=== PATIENT | male | born 1975 | race Caucasian/White ===

== ENCOUNTER 2019-09-06 21:29 | Emergency (ER) | payer OTHER ==
[~2019-09-06] VITALS: Ht 172.7 cm; Wt 84.1 kg
[2019-09-06 21:47] VITALS: BP 139/94; Ht 172.7 cm; Wt 84.1 kg
[2019-09-06] MEDS ORDERED: PRAVACHOL20 MG (21:48)
[2019-09-06] MEDS ORDERED: SEROQUEL25 MG (21:48)
[2019-09-06] MEDS ORDERED: XANAX1 MG (21:48)
[2019-09-06] MEDS ORDERED: FENOGLIDE40 MG (21:48)
[2019-09-06] MEDS ORDERED: LISINOPRIL10 MG (21:48)
[2019-09-06] MEDS ORDERED: HYDROCODON-ACE1 EA10 PO (22:35)
[2019-09-06] MEDS ORDERED: ORAL ANALGESIC9 GM TOPICAL (22:35)
== END 2019-09-06 22:44 | disposition home or self-care (01) ==
LOC: D.ER 21:29
DX: K03.81 Cracked tooth (principal); I10 Essential (primary) hypertension; M54.9 Dorsalgia, unspecified